=== PATIENT | female | born 1990 | race African-American/Black ===

== ENCOUNTER 2018-02-05 11:21 | Emergency (ER) | payer MEDICAID ==
--- NOTE | 2018-02-05 12:12 | EDM.PDOC ---
ED HPI GENERAL MEDICAL PROBLEM - General Chief Complaint: Skin Complaint Stated Complaint: PAIN IN ARMPIT Time Seen by Provider: 02/05/18 12:11 Source of Information: Reports: Patient History Limitations: Reports: No Limitations - History of Present Illness INITIAL COMMENTS - FREE TEXT/NARRATIVE: HISTORY AND PHYSICAL: History of present illness: Patient is a 27-year-old female here with complaint of left armpit cyst. 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 She denies any drainage from the lesion. She is otherwise in his usual state of health and denies fevers, chills, nausea , vomiting, diarrhea. Review of systems: As per history of present illness and below otherwise all systems reviewed and negative. Past medical history: As per history of present illness and as reviewed below otherwise noncontributory. Surgical history: As per history of present illness and as reviewed below otherwise noncontributory. Social history: No reported history of drug or alcohol abuse. Family history: As per history of present illness and as reviewed below otherwise noncontributory. Physical exam: General: Patient sitting comfortably in no acute distress and nontoxic appearing HEENT: Atraumatic, normocephalic, pupils reactive, negative for conjunctival pallor or scleral icterus, mucous membranes moist, throat clear, neck supple, nontender, trachea midline. No meningeal signs. Lungs: Clear to auscultation, breath sounds equal bilaterally, chest nontender. Heart: S1S2, regular, negative for clicks, rubs, or overt murmur. Skin: There is a 1.5cm indurated area in the left axilla without erythema, warmth, or drainage. Tender to touch Extremities: Atraumatic, negative for cords or calf pain. Neurovascular unremarkable. Neuro: Awake, alert, oriented. Cranial nerves II through XII unremarkable. Cerebellum unremarkable. Motor and sensory unremarkable throughout. Exam nonfocal. Notes: Diagnostics: None Therapeutics: I&D Prescriptions: Bactrim DS Impression: Abscess Plan: 1. Take antibiotic as directed 2. Follow up with primary care provider 3. Return to ED as needed as discussed Definitive disposition and diagnosis as appropriate pending reevaluation and review of above. left armpit area Pain Score (Numeric/FACES): 9 - Related Data Allergies Allergy/AdvReac Type Severity Reaction Status Date / Time No Known Allergies Allergy Verified 02/05/18 11:28 Home Meds: Home Meds Sulfamethoxazole/Trimethoprim [Bactrim Ds Tablet] 1 each PO BID 7 Days #14 tablet 02/05/18 [Rx] Past Medical History - Past Health History Medical/Surgical History: Denies Medical/Surgical History Dermatologic History: Reports: Other (See Below) Other Dermatologic History: sweat gland infection in bilateral armpits Social & Family History - Family History Family Medical History: Noncontributory - Tobacco Use Smoking Status *Q: Former Smoker Used Tobacco, but Quit: Yes Month/Year Tobacco Last Used: 1 - Caffeine Use Caffeine Use: Reports: Coffee - Recreational Drug Use Recreational Drug Use: No ED ROS GENERAL - Review of Systems Review Of Systems: ROS reveals no pertinent complaints other than HPI. ED EXAM, SKIN/RASH Exam: See Below (see dictation) ED SKIN PROCEDURES - I&D Site: left axilla Skin Prep: Providone-Iodine (Betadine) Local Anesthesia: Lidocaine: 1% Plain Local Anesthetic Volume: 1cc Area Incised With: 11 Blade Drainage: Purulent, Bloody, Moderate Amount Packed With: None Sterile Dressing: Other Complications: No Course - Vital Signs Last Recorded V/S: Last Vital Signs Temp 36.4 C 02/05/18 11:29 Pulse 118 H 02/05/18 11:29 Resp 20 02/05/18 11:29 BP 110/71 02/05/18 11:29 Pulse Ox 100 02/05/18 11:29 - Orders/Labs/Meds Meds: Medications Discontinued Medications Generic Name Dose Route Start Last Admin Trade Name Vivek PRMercedes Reason Stop Dose Admin Lidocaine HCl 5 ml 02/05/18 11:37 02/05/18 11:49 Xylocaine-Mpf 1% INJECT 02/05/18 11:38 5 ml ONETIME ONE Administration Departure - Departure Time of Disposition: 12:09 Disposition: Home, Self-Care 01 Condition: Good Clinical Impression: Abscess - Discharge Information Prescriptions: Sulfamethoxazole/Trimethoprim [Bactrim Ds Tablet] 1 each PO BID 7 Days #14 tablet Referrals: PCP,None [Primary Care Provider] - Forms: ED Department Discharge Additional Instructions: The following information is given to patients seen in the emergency department who are being discharged to home. This information is to outline your options for follow-up care. We provide all patients seen in our emergency department with a follow-up referral. The need for follow-up, as well as the timing and circumstances, are variable depending upon the specifics of your emergency department visit. If you don't have a primary care physician on staff, we will provide you with a referral. We always advise you to contact your personal physician following an emergency department visit to inform them of the circumstance of the visit and for follow-up with them and/or the need for any referrals to a consulting specialist. The emergency department will also refer you to a specialist when appropriate. This referral assures that you have the opportunity for follow-up care with a specialist. All of these measure are taken in an effort to provide you with optimal care, which includes your follow-up. Under all circumstances we always encourage you to contact your private physician who remains a resource for coordinating your care. When calling for follow-up care, please make the office aware that this follow-up is from your recent emergency room visit. If for any reason you are refused follow-up, please contact the [facility] Emergency Department at and asked to speak to the emergency department charge nurse. [facility] [address] [place] [phone] 1. Take antibiotic as directed 2. Follow up with primary care provider 3. Return to ED as needed as discussed
== END 2018-02-05 12:19 | disposition home or self-care (01) ==
LOC: MW.ED 11:21
DX: O99.711 Diseases of the skin and subcutaneous tissue complicating pregnancy, first trimester (principal); L02.412 Cutaneous abscess of left axilla; Z87.891 Personal history of nicotine dependence; Z98.890 Other specified postprocedural states; Z86.14 Personal history of Methicillin resistant Staphylococcus aureus infection; Z3A.08 8 weeks gestation of pregnancy
CPT/HCPCS: 10060; 99282

== ENCOUNTER 2021-06-17 19:27 | Emergency (ER) | payer SELFPAY ==
[2021-06-17 22:04] LABS: CORONAVIRUS COVID-19 NAA NEGATIVE (NEGATIVE); INFLUENZA A NAA NEGATIVE (NEGATIVE); INFLUENZA B NAA NEGATIVE (NEGATIVE)
[2021-06-17] MEDS ORDERED: Dexamethasone 10 MG/ML SDV PO ONE (22:22)
== END 2021-06-17 23:35 | disposition home or self-care (01) ==
LOC: MW.ED 19:27
DX: B34.9 Viral infection, unspecified (principal); J03.90 Acute tonsillitis, unspecified; Z20.822 Contact with and (suspected) exposure to COVID-19
CPT/HCPCS: 0240U; 87651; 99283; J8540

== ENCOUNTER 2021-07-14 19:29 | Emergency (ER) | payer MEDICAID ==
[2021-07-14] MEDS ORDERED: Sodium Chloride 0.9% 10 ML Syringe FLUSH PRN (19:51)
[2021-07-14] MEDS ORDERED: Sodium Chloride 0.9% 2.5 ML Syringe FLUSH PRN (19:51)
[2021-07-14] MEDS ORDERED: HYDROmorphone 1 MG/ML Syringe IVPUSH ONE (20:34)
[2021-07-14] MEDS ORDERED: Ondansetron 4 MG/2 ML SDV IVPUSH ONE (20:34)
[2021-07-14] MEDS ORDERED: Sodium Chloride 0.9% 1,000 ML IV ONE (20:34)
[2021-07-14 20:49] LABS: BLOOD UREA NITROGEN,BUN 10 mg/dL (7.0-18.0); CARBON DIOXIDE,CO2 29.1 mmol/L (21.0-32.0); CHLORIDE,CL 103 mmol/L (98-107); GLUCOSE RANDOM 97 mg/dL (74-106); POTASSIUM,K 3.7 mmol/L (3.5-5.1); SODIUM,NA 141 mmol/L (136-145)
[2021-07-15] MEDS ORDERED: Misoprostol 200 MCG Tab PO STA (00:02)
[2021-07-15] MEDS ORDERED: Ketorolac 30 MG/ML SDV IM ONE (00:17)
[2021-07-15] MEDS ORDERED: Ketorolac 30 MG/ML SDV IVPUSH ONE (00:44)
== END 2021-07-15 01:17 | disposition home or self-care (01) ==
LOC: MW.ED 19:29
DX: O02.1 Missed abortion (principal)
CPT/HCPCS: 36415; 76817; 80053; 84702; 85025; 85610; 86900; 86901; 96374; 96375; 99284; A9270; J1170; J1885; J2405; J7030

== ENCOUNTER 2022-11-05 15:55 | Emergency (ER) | payer MEDICAID ==
[2022-11-05] MEDS ORDERED: Sodium Chloride 0.9% 1,000 ML IV STA (16:23)
[2022-11-05 16:28] LABS: BASOPHILS PERCENT AUTO 0.1 % (0.0-1.5); EOSINOPHILS ABSOLUTE AUTO 0.2 K/uL (0.0-0.7); EOSINOPHILS PERCENT AUTO 2.2 % (0.0-7.0); HEMATOCRIT 38.2 % (36.0-46.0); HEMOGLOBIN 12.8 g/dL (12.0-16.0); LYMPHOCYTES ABSOLUTE AUTO 3.8 K/uL (0.6-2.4); LYMPHOCYTES PERCENT AUTO 55.4 % (16.0-40.0); MEAN CORPUSCULAR HEMOGLOBIN 31.8 pg (27.0-32.0); MEAN CORPUSCULAR HGB CONC 33.5 g/dL (31.0-37.0); MEAN CORPUSCULAR VOLUME 94.8 fL (80.0-98.0); MONOCYTES ABSOLUTE AUTO 0.5 K/uL (0.0-0.8); MONOCYTES PERCENT AUTO 6.7 % (0.0-15.0); NEUTROPHILS ABSOLUTE AUTO 2.5 K/uL (1.4-5.7); NEUTROPHILS PERCENT AUTO 35.6 % (48.0-80.0); NRBC ABSOLUTE 0 K/uL; PLATELET COUNT,PLT 278 K/uL (150-400); RED BLOOD CELL COUNT 4.03 M/uL (4.30-5.90); WHITE BLOOD CELL COUNT,WBC 6.91 K/uL (4.0-11.0)
[2022-11-05 16:43] LABS: A/G RATIO 0.9 (0.9-1.6); ALBUMIN 3.3 g/dL (3.4-5.0); BILIRUBIN TOTAL 0.2 mg/dL (0.2-1.0); CALCIUM 8.4 mg/dL (8.5-10.1); CARBON DIOXIDE,CO2 25.3 mmol/L (21.0-32.0); CREATININE 0.8 mg/dL (0.6-1.0); EST CRCL DRUG DOSING (CG) 97.13 mL/min; POTASSIUM,K 4.1 mmol/L (3.5-5.1)
[2022-11-05 16:52] LABS: APPEARANCE,URINE SLT CLOUDY; BILIRUBIN,URINE NEGATIVE (NEGATIVE); COLOR,URINE YELLOW; GLUCOSE,URINE NEGATIVE (NEGATIVE); KETONES,URINE NEGATIVE (NEGATIVE); LEUKOCYTE ESTERASE,URINE NEGATIVE (NEGATIVE); NITRITE,URINE NEGATIVE (NEGATIVE); OCCULT BLOOD,URINE NEGATIVE (NEGATIVE); PROTEIN,URINE NEGATIVE (NEGATIVE)
[2022-11-05 17:02] LABS: AMPHETAMINES SCREEN, URINE NEGATIVE (CUTOFF=500); BARBITURATE SCREEN,URINE NEGATIVE (CUTOFF=200); BENZODIAZEPINES SCREEN,URINE NEGATIVE (CUTOFF=150); BUPRENORPHINE SCREEN,URINE NEGATIVE (CUTOFF=10); METHADONE SCREEN, URINE NEGATIVE (CUTOFF=200); METHAMPHETAMINES SCREEN, URINE NEGATIVE (CUTOFF=500); OXYCODONE SCREEN,URINE NEGATIVE (CUT0FF=100); PCP SCREEN,URINE NEGATIVE (CUTOFF=25); PROPOXYPHENE SCREEN,URINE NEGATIVE (CUTOFF=300); THC SCREEN,URINE 20 NG/ML PRESUMPTIVE POSITIVE (CUTOFF=50)
== END 2022-11-05 19:18 | disposition home or self-care (01) ==
LOC: MW.ED 15:55
DX: R56.9 Unspecified convulsions (principal)
CPT/HCPCS: 36415; 70450; 80053; 80305; 81003; 83605; 84702; 85025; 93005; 96360; 99285; J7030; 93010; 99284

== ENCOUNTER 2022-11-23 23:39 | Emergency (ER) | payer MEDICAID ==
[2022-11-24] MEDS ORDERED: Ketorolac 30 MG/ML SDV IM STA (00:29)
[2022-11-24] MEDS ORDERED: Ketorolac 60 MG/2 ML SDV IM ONE (00:42)
== END 2022-11-24 02:35 | disposition home or self-care (01) ==
LOC: MW.ED 23:39
DX: M25.512 Pain in left shoulder (principal); M25.522 Pain in left elbow; W05.1XXA Fall from non-moving nonmotorized scooter, initial encounter
CPT/HCPCS: 71045; 72040; 73030; 73070; 73560; 96372; 99284; J1885; 99283

== ENCOUNTER 2023-04-17 19:41 | Emergency (ER) | payer MEDICAID ==
[2023-04-17] MEDS ORDERED: Ketorolac 30 MG/ML SDV IM ONE (20:13)
[2023-04-17 20:44] LABS: CORONAVIRUS COVID-19 NAA POSITIVE (NEGATIVE); INFLUENZA A NAA NEGATIVE (NEGATIVE); INFLUENZA B NAA NEGATIVE (NEGATIVE)
== END 2023-04-17 21:27 | disposition home or self-care (01) ==
LOC: MW.ED 19:41
DX: U07.1 COVID-19 (principal)
CPT/HCPCS: 0240U; 96372; 99284; J1885; 99283

== ENCOUNTER 2023-11-06 12:00 | Inpatient (IN) | payer MEDICAID ==
[2023-11-06] MEDS ORDERED: Misoprostol 200 MCG Tab PO PRN (12:07)
[2023-11-06] MEDS ORDERED: Tranexamic Acid IN NACL,ISO-OS 1,000 MG in Premix Bag 1 BAG IV PRN (12:07)
[2023-11-06] MEDS ORDERED: Butorphanol 2 MG/ML SDV IVPUSH PRN (12:07)
[2023-11-06] MEDS ORDERED: Lidocaine 1% 50 ML MDV INJECT PRN (12:07)
[2023-11-06] MEDS ORDERED: Carboprost Tromethamine 250 MCG/1 mL Vial IM PRN (12:07)
[2023-11-06] MEDS ORDERED: Methylergonovine 0.2 MG/1 ML Amp IM PRN (12:07)
[2023-11-06] MEDS ORDERED: Sodium Chloride 0.9% 10 ML Syringe FLUSH PRN (12:07)
[2023-11-06] MEDS ORDERED: Sodium Chloride 0.9% 20 ML SDV IV PRN (12:07)
[2023-11-06] MEDS ORDERED: Sodium Chloride 0.9% 2.5 ML Syringe FLUSH PRN (12:07)
[2023-11-06] MEDS ORDERED: Water For Irrigation,Sterile 1,000 ML Container IRR PRN (12:07)
[2023-11-06] MEDS: Lactated Ringers 1,000 ML IV SCH (12:15)
[2023-11-06 12:45] LABS: HEMATOCRIT 33.6 % (37.0-47.0); HEMOGLOBIN 11.5 g/dL (12.0-16.0); MEAN CORPUSCULAR HEMOGLOBIN 31.8 pg (28.0-32.0); MEAN CORPUSCULAR HGB CONC 34.2 g/dL (32.0-36.0); MEAN CORPUSCULAR VOLUME 92.8 fL (83.0-99.0); MEAN PLATELET VOLUME 11.1 fL (9.4-12.3); PLATELET COUNT,PLT 227 K/uL (150-400); RED BLOOD CELL COUNT 3.62 M/uL (4.10-5.30); WHITE BLOOD CELL COUNT,WBC 12.69 K/uL (3.9-11.3)
[2023-11-06] MEDS: Oxytocin/0.9 % Sodium Chloride 30 UNIT/500 ML BAG IV SCH (12:49)
[2023-11-06] MEDS ORDERED: Acetaminophen 500 MG Tab PO PRN (13:11)
[2023-11-06] MEDS ORDERED: Docusate Sodium 100 MG Cap PO PRN (13:11)
[2023-11-06] MEDS ORDERED: Lanolin 100% Cream 7 GM Tube TOP PRN (13:11)
[2023-11-06] MEDS: Ibuprofen 800 MG Tab PO PRN (14:40)
[2023-11-06] MEDS: Benzocaine/Menthol 20%-0.5% Spray 78 GM Cannister TOP PRN (14:41)
[2023-11-06] MEDS: Witch Hazel Medicated Pads 40/Jar TOP PRN (14:42)
[2023-11-07 05:59] LABS: HEMATOCRIT 32.2 % (37.0-47.0)
== END 2023-11-08 16:45 | disposition home or self-care (01) | DRG 807 ==
LOC: MW.OBCHECK 12:00 → MW.OB 12:02 → MW.OBCHECK 12:07 → OBSVTOIN 13:11 → MW.OB 20:49
PROVIDERS: ADMIT Obstetrics & Gynecology Obstetrics; ATTEND Obstetrics & Gynecology Obstetrics
PROC: 10E0XZZ Delivery of Products of Conception, External Approach (ICD-10-PCS; principal; 2023-11-06)
DX: O80 Encounter for full-term uncomplicated delivery (principal); Z37.0 Single live birth; Z3A.37 37 weeks gestation of pregnancy
CPT/HCPCS: 36415; 59025; 59409; 85014; 85018; 85027; 86592; 86850; 86900; 86901; A9270-GY; J2590; J7120